=== PATIENT | female | born 1995 | race Caucasian/White ===

== ENCOUNTER 2017-07-22 02:18 | Emergency (ER) | payer OTHER, SELFPAY ==
[2017-07-22 02:19] VITALS: BP 120/70; PULSE 90; RESP 18; TEMP 36.8; O2SAT 100; BMI 23.3
[2017-07-22 02:51] LABS: Absolute Lymphocyte Count 1.32 X10^3/ul (0.83-4.51); Basophil# 0.02 X10^3/uL; Basophil% 0.1 % (0-1); Eosinophil# 0.05 X10^3/uL; Eosinophils% 0.4 % (0-5); Hematocrit 40.8 % (37-47); Hemoglobin 13.8 g/dl (12.0-15.0); Lymphocyte # 1.32 X10^3/ul (4.0); Lymphocyte % 9.4 % (19-41); Mean Corp Hgb Conc 33.8 g/gl (32-36); Mean Corpuscular Hgb 28.8 pg (27.0-32.0); Mean Platelet Vol. 9.2 fl (6.2-12.0); Monocyte# 0.61 X10^3/uL; Monocyte% 4.4 % (0-10); Neutrophil # 11.97 X10^3/uL (2.7-7.7); Neutrophil % 85.4 % (47-70); POSITIVE COUNT NO; POSITIVE DIFFERENTIAL NO; POSITIVE MORPHOLOGY NO; Platelet Count 377 K/mm3 (150-450); RBC Distribution Width CV 13.6 % (11.6-14.6); RBC Distribution Width SD 41.2 fl (35.1-43.9)
[2017-07-22] MEDS: Lactated Ringers 1,000 ML 1000 ML IV (02:58)
[2017-07-22] MEDS: Metoclopramide 10 MG/2 ML Vial IV (02:58)
[2017-07-22 03:01] LABS: BUN 15 mg/dL (7-18); Creatinine, Serum 0.64 mg/dL (0.55-1.02); Estimated Creatinine Clearance 127.22 ml/min; Glucose 106 mg/dL (74-106)
[2017-07-22 03:02] LABS: ALB/GLOB Ratio 0.9 RATIO (0.9-2.4); AST(SGOT) 15 U/L (15-37); Alanine Aminotransfer ALT/SGPT 27 U/L (13-56); Albumin, Serum 4.1 g/dL (3.2-5.0); Alkaline Phosphatase 116 U/L (45-117); Anion Gap 8 (5-15); BUN/Creat Ratio 23.5 RATIO (10-20); Calcium,Total 8.6 mg/dL (8.5-10.1); Chloride 104 mmol/L (98-107); EST Glomerular Filtration Rate 127 mL/min (>60); Est Glom Filt Rate - Afr Amer 153 mL/min (>60); Globulin 4.6 g/dL (2.2-4.2); Lipase 82 U/L (73-393); Potassium 3.7 mmol/L (3.5-5.1); Protein, Total 8.7 g/dL (6.4-8.2); Sodium Level 138 mmol/L (136-145)
--- NOTE | 2017-07-22 03:35 | ED.VISSUMM ---
- ER Visit Summary Date of Service: 07/22/17 Chief Complaint: Abdominal pain nausea and vomiting History of Present Illness: The patient is a 21 F presenting for evaluation secondary to abdominal pain nausea vomiting. Patient states that today she had a relatively sudden onset of profuse nausea vomiting. She states that this is nonbloody nonbilious. Patient states that after up to 9 episodes of vomiting she started to gradually get some diffuse crampy abdominal pain. Pain is worse with palpation. Patient denies any diarrhea, she denies any presence of fevers. Patient states that she was unable to keep down fluids. Patient is approximately 5 weeks , is a . She denies any vaginal bleeding or discharge. She has had some mild morning sickness with this , but denies that she is actually had any sort of vomiting. She denies any sick contacts. Physical Examination: Vital signs are within normal limits, patient is afebrile. General: Patient is well-nourished well-developed and in no acute distress. Head: Normocephalic, atraumatic Eyes: Pupils equal round and reactive bilaterally, extra occular motion intact bialterally ENT: Mildly dry mucous membranes Neck: Supple, no lymphadenopathy, no JVD, no meningismus CVS: Heart regular rate and rhythm, no murmurs, rubs or gallops, radial pulses 2+ bilaterally Resp: Respirations nondistressed, lung sounds clear bilaterally Abdomen: Soft, minimal epigastric ttp, nondistended, no palpable masses, normal bowel sounds Back: Nontender Extremities: Nontender, atraumatic, active full range of motion, no peripheral edema Skin: warm, no rashes, no petechia Neuro: Alert and oriented x 4, CN 2-12 intact, no lateralizing neurological defecits Psyc: Normal affect Test Results: CBC shows leukocytosis of 14. CMP unremarkable, lipase negative, ketones negative Emergency Department Course and Treatment: Patient presented secondary to nausea and vomiting in the setting of first trimester . She is not ketotic, I do not believe that this is a presentation of hyperemesis. She was given a liter of lactated Ringer's and Reglan. Repeat evaluation showed significant symptomatic improvement. At this point she likely has an element of gastritis she will be discharged with Reglan instructions on hydration and follow-up with primary care. Disposition: Discharge Impression: 1. Gastritis 2. First trimester This note was generated with Dragon dictation software. It may contain incorrect words, spelling, and punctuation that were not noted in review of the chart prior to signing ED Disposition - Plan for ED Patient: Disposition: Home or Assisted Living Chief Complaint: Nausea/Vomiting Diagnosis: Gastritis Instructions: ED Nausea Vomiting Prescriptions: Metoclopramide [Reglan] 10 mg PO 4X/DAY PRN PRN #20 tab PRN Reason: Headache Referrals: Latricia Sullivan COUNTERINTELLIGENCE ANALYST-C [Primary Care Provider] - 3-5 Days if not improving
[2017-07-22 04:30] VITALS: BP 100/57; PULSE 84; RESP 14; O2SAT 98
== END 2017-07-22 04:30 | disposition home or self-care (01) ==
PROVIDERS: Emergency Provider Emergency Medicine; Family Provider Nurse Practitioner Family; PCP Nurse Practitioner Family
DX: O99.89 Other specified diseases and conditions complicating pregnancy, childbirth and the puerperium (principal); K29.70 Gastritis, unspecified, without bleeding; Z3A.01 Less than 8 weeks gestation of pregnancy
CPT/HCPCS: 80053; 82009; 83690; 85025; 96361; 96374; 99283; J7120; A4216

== ENCOUNTER → 2017-11-20 16:51 | Outpatient (CLI) | payer SELFPAY ==
[2017-11-20 17:40] LABS: Absolute Lymphocyte Count 2.42 X10^3/ul (0.83-4.51); Absolute Neutrophil Count 7.2 X10^3/uL (2.0-7.7); Basophil# 0.02 X10^3/uL; Basophil% 0.2 % (0-1); Eosinophil# 0.05 X10^3/uL; Eosinophils% 0.5 % (0-5); Hematocrit 34.5 % (37-47); Hemoglobin 11.2 g/dl (12.0-15.0); Lymphocyte # 2.42 X10^3/ul (4.0); Lymphocyte % 23.4 % (19-41); Mean Corp Hgb Conc 32.5 g/gl (32-36); Mean Corpuscular Hgb 29.6 pg (27.0-32.0); Mean Corpuscular Volume 91.3 fL (81-99); Mean Platelet Vol. 9.1 fl (6.2-12.0); Monocyte# 0.68 X10^3/uL; Monocyte% 6.6 % (0-10); Neutrophil # 7.16 X10^3/uL (2.7-7.7); Platelet Count 296 K/mm3 (150-450); RBC Distribution Width CV 13.8 % (11.6-14.6); RBC Distribution Width SD 45.2 fl (35.1-43.9); Red Blood Count 3.78 M/mm3 (4.2-5.4); White Blood Count 10.4 K/mm3 (4.4-11.0)
[2017-11-20 17:41] LABS: POSITIVE COUNT NO; POSITIVE DIFFERENTIAL NO; POSITIVE MORPHOLOGY NO
[2017-11-20 17:45] LABS: Color, Urine Yellow (Yellow); Glucose, Dipstick Normal (Normal); Ketone-Dipstick 5 mg/dl (Negative); Leukocyte Esterase-Dipstick 25 /ul (Negative); Nitrite-Dipstick Negative (Negative); Occult Blood-Urine Negative /ul (Negative); Protein-Dipstick 15 mg/dl (Negative); Specific Gravity, Urine 1.015 (1.002-1.030); Urine Bilirubin Dipstick Negative (Negative); Urine Clarity Sl. Cloudy (Clear); Urine Urobilinogen Normal (Normal)
[2017-11-20 18:17] LABS: Thyroid Stim Hormone (TSH) 1.32 uIU/mL (0.358-3.74)
[2017-11-20 19:24] LABS: Chlamydia Trachomatis by PCR Negative (Negative); Neisserai gonorrhoeae by PCR Negative (Negative); Probe Check PASS; Sample Adequacy Control PASS; Specimen Processing Control PASS
[2017-11-21 10:31] LABS: HIV - WCH Non-Reactive (Nonreactive)
[2017-11-23 03:49] LABS: Prenatal RPR NONREACTIVE (NONREACTIVE)
[2017-11-23 11:51] LABS: HEPATITIS B SURFACE AG Negative (Negative); Hep C Antibodies <0.1 s/co ratio (0.0-0.9)
== END ==
PROVIDERS: Visit Provider Obstetrics & Gynecology
DX: Z34.82 Encounter for supervision of other normal pregnancy, second trimester (principal)
CPT/HCPCS: 36415; 81002; 84443; 85025; 86703; 86762; 86803; 87340; 87491; 87591

== ENCOUNTER → 2017-12-18 09:48 | Outpatient (CLI) | payer OTHER, SELFPAY ==
[2017-12-18 10:44] LABS: Hematocrit 32.9 % (37-47); Hemoglobin 10.7 g/dl (12.0-15.0); Mean Corp Hgb Conc 32.5 g/gl (32-36); Mean Corpuscular Hgb 29.6 pg (27.0-32.0); Mean Corpuscular Volume 90.9 fL (81-99); Mean Platelet Vol. 9.1 fl (6.2-12.0); Platelet Count 260 K/mm3 (150-450); RBC Distribution Width CV 13.6 % (11.6-14.6); Red Blood Count 3.62 M/mm3 (4.2-5.4); Scan Indicated on CBC? Y/N NO; White Blood Count 8.5 K/mm3 (4.4-11.0)
[2017-12-18 11:21] LABS: Glucose Challenge Gest 1H 50g 89 mg/dL (70-140)
== END ==
PROVIDERS: Visit Provider Obstetrics & Gynecology
DX: Z34.83 Encounter for supervision of other normal pregnancy, third trimester (principal)
CPT/HCPCS: 36415; 82950; 85027

== ENCOUNTER → 2018-02-04 10:33 | Outpatient (CLI) | payer OTHER, SELFPAY | PROVIDERS: Visit Provider Obstetrics & Gynecology | DX: Z36.85 Encounter for antenatal screening for Streptococcus B (principal) | CPT/HCPCS: 87081 ==

== ENCOUNTER 2018-03-09 13:44 | Inpatient (IN) | payer SELFPAY ==
[2018-03-09 12:52] VITALS: BMI 25.7
[2018-03-09] MEDS: Lactated Ringers 1,000 ML 50 ML IV ×3 (14:15→20:04)
[2018-03-09 14:40] LABS: Hematocrit 35.1 % (37-47); Hemoglobin 11.2 g/dl (12.0-15.0); Mean Corp Hgb Conc 31.9 g/gl (32-36); Mean Corpuscular Hgb 27.3 pg (27.0-32.0); Mean Corpuscular Volume 85.4 fL (81-99); Mean Platelet Vol. 8.9 fl (6.2-12.0); Platelet Count 266 K/mm3 (150-450); RBC Distribution Width CV 14.1 % (11.6-14.6); RBC Distribution Width SD 43.5 fl (35.1-43.9); Red Blood Count 4.11 M/mm3 (4.2-5.4); Scan Indicated on CBC? Y/N NO; White Blood Count 13.8 K/mm3 (4.4-11.0)
--- NOTE | 2018-03-09 17:00 | PN.OBGYN_ITS ---
Subjective: Afeb VSS FHR tracing Cat 1 CTXs q 2-3 minutes - Physical Exam General: Alert, Oriented x3, Cooperative, No apparent distress Lungs: Clear to auscultation, Normal air movement Cardiovascular: Regular rate, Regular Rhythm Abdomen: Soft, Non Tender, Non-Distended, Gravid, Appropriate for Gestational Age Extremities: No edema Skin: No rashes Neurological: Neuro grossly intact Psych/Mental Status: Normal Affect Comment: CE /-3 Weight: 155 lb Body Mass Index (BMI) 25.7 Laboratory Tests Past 24 Hrs 03/09/18 03/09/18 14:15 14:15 WBC 13.8 H RBC 4.11 L Hgb 11.2 L Hct 35.1 L MCV 85.4 MCH 27.3 MCHC 31.9 L RDW 14.1 RDW Differential 43.5 Plt Count 266 MPV 8.9 Blood Type A POSITIVE Antibody Screen NEGATIVE Medical Necessity - Tobacco Use Smoking Status: Former smoker Assessment/Plan Admitted in active labor this afternoon. AROM performed with clear fluid noted. GBS negative. Epidural if desired. Will start pitocin if no cervical foreign exchange student coordinator the next two hours.
[2018-03-09] MEDS: fentaNYL-bupivacaine (epidural) 100 ML BAG EPIDURAL (17:39)
[2018-03-09] MEDS: Oxytocin 30 units/NS 500 ml 30 UNITS/500 ML IV.SOLN IV (19:00)
[2018-03-09] MEDS: Acetaminophen 325 MG Tablet PO (19:17)
[2018-03-09] MEDS: Oxytocin 30 units/NS 500 ml 30 UNITS/500 ML IV.SOLN 334 UNITS IV (22:28)
--- NOTE | 2018-03-09 22:41 | PCM.OB.VAG ---
Vaginal Delivery Maternal Presentation: Active Labor Presents at 40 weeks ega in active labor Amniotic Membrane Rupture Type: Artificial Rupture of Membrane time: 1630 Amniotic Fluid Description: Clear Final KELLIE: 03/09/18 Final KELLIE Source: US <20 weeks Gestational age: 40 Weeks and 0 Days Date of Procedure: 03/09/18 Pre-Operative Diagnosis: Labor Post-Operative Diagnosis: same Surgery/ Procedure Performed: Spontaneous Vaginal Delivery Anesthesiologist: Marino Vidal Type of Anesthesia: Epidural Description of Procedure: Progressed with pitocin augmentation to FD then pushed for about 15 minutes to deliver a live female without complication. Delayed cord clamping was employed. The placenta delivered spontaneously intact with a centrally located 3VC. The uterus contracted well after delivery. Inspection revealed an intact cervix, upper and lower vagina. A small left periurethral tear was repaired with 3-0 vicryl suture. Presentation: Vertex Placental Delivery Description: Spontaneous Placenta Disposition: [facility] Percentage of Placenta Abruption: 0 Cord Vessel Description: 3 Vessels Nuchal Cord Compression: Without compression Cord Entanglement: None Drain: Woods to straight drain Estimated Blood Loss: 200cc A gender: Female (1 minute): 8 (5 minute): 9 Episiotomy Description: None Laceration: Periurethral Extnsion/lac, 1st degree Medications given after delivery: IV Pitocin Complications: None
--- NOTE | 2018-03-09 22:48 | DCINST_ITS ---
Discharge Diet: No Restrictions Discharge Activity: Return to Normal Activity, May Drive, May Shower Return to work on:: 05/10/18 May resume sexual activity in: 6 weeks Call your doctor if your incision/area has: Sudden Increased Bleeding, Increased Pain/ Swelling, Foul Smelling Discharge Call your doctor if you observe: Fever of 101 or Higher, Inability to urinate, Inability to have a bowel movement, Using more than one pad per hour, Shortness of breath, Chest pain, Calf discomfort, Uncontrolled pain Cleanse incision/area with: Soap & Water Additional Instructions: If you experience any of the following, contact your healthcare provider. * Bleeding that soaks a pad every hour for 2 hours * Fever 100.4 or higher * Unrelieved incision or abdominal pain * Swelling, redness, discharge or bleeding from your incision or episiotomy site * Your incision begins to separate * Problems urinating (including inability to urinate or burning while urinating). * Visual changes * Severe headache * Flu-like symptoms * Pain or redness in one of both of your breasts * Pain, warmth, tenderness or swelling in your legs, especially the calf area * Frequent nausea and vomiting * Symptoms of depression or anxiety If you experience any of the following, call 911 or go to the nearest Emergency Room. * Chest pain * Problems breathing * Seizure activity * Partial or complete paralysis of a body part, slurred speech, weakness or drooping of the face, or a sudden inability to walk or hold your balance Allergies/Adverse Reactions: Allergies No Known Allergies Allergy (Verified 03/09/18 13:02) Medications to take at Discharge Formula Tablet 1 tablet PO DAILY 09/10/16 Ibuprofen [Motrin] 600 mg PO Q6H PRN PRN #30 tab 03/09/18 The following prescriptions were given: Ibuprofen [Motrin] 600 mg PO Q6H PRN PRN #30 tab PRN Reason: pain or cramping Please Follow Up With: Sonja Sapp MD When: 6 weeks Test Results: Test results from this visit will be discussed in further detail at your follow- up appointment, if applicable. Proposed Discharge Date: 03/11/18
[2018-03-09] MEDS: Oxytocin 30 units/NS 500 ml 30 UNITS/500 ML IV.SOLN 167 UNITS IV (22:58)
[2018-03-10 00:40] VITALS: BP 104/59; PULSE 96; RESP 16; TEMP 36.7; O2SAT 98
--- NOTE | 2018-03-10 01:28 | NURSING ---
This RN and Trevor York RN tried to get pt. up out of bed to use restroom. Pt's legs still too numb to walk. RNs assisted pt. back in bed and positioned comfortably. Will try again in 30-60 minutes. Pt. given call light and told to use call light if she needs anything. No needs stated at this time.
[2018-03-10 03:23] VITALS: BP 111/63; PULSE 98; RESP 16; TEMP 36.9; O2SAT 95
[2018-03-10] MEDS: Ibuprofen 600 MG Tablet PO ×3 (05:37→20:14)
[2018-03-10 05:47] LABS: Hematocrit 32.6 % (37-47); Hemoglobin 10.6 g/dl (12.0-15.0); Mean Corp Hgb Conc 32.5 g/gl (32-36); Mean Corpuscular Hgb 28.2 pg (27.0-32.0); Mean Corpuscular Volume 86.7 fL (81-99); Mean Platelet Vol. 9.2 fl (6.2-12.0); Platelet Count 240 K/mm3 (150-450); RBC Distribution Width SD 42.6 fl (35.1-43.9); Red Blood Count 3.76 M/mm3 (4.2-5.4)
[2018-03-10 05:48] LABS: Scan Indicated on CBC? Y/N NO
[2018-03-10] MEDS: Acetaminophen 500 MG Tablet 1000 MG PO ×2 (08:35→17:23)
[2018-03-10] MEDS: Dibucaine 30 GM Tube 1 APPLIC TOPICAL (08:44)
[2018-03-10] MEDS: Senna/Docusate Sodium 1 Tablet PO (08:44)
[2018-03-10] MEDS: Prenatal Vits Tablet 1 TABLET PO (08:44)
[2018-03-10 09:00] VITALS: BP 113/73; PULSE 85; RESP 16; TEMP 36.4; O2SAT 98
--- NOTE | 2018-03-10 09:01 | PCM.PN.OB ---
Subjective: No specific complaints. Some cramping with breast feeding. Lochia light. Objective: Afeb VSS - Physical Exam General: Alert, Oriented x3, Cooperative, No apparent distress Lungs: Clear to auscultation, Normal air movement Cardiovascular: Regular rate, Regular Rhythm Abdomen: Soft, Non Tender, Non-Distended, - - Fundus firm nontender Extremities: No edema, No Calf Tenderness Skin: No rashes Neurological: Neuro grossly intact Psych/Mental Status: Normal Affect Comment: Lochia light Vital Signs Temp Pulse Resp BP Pulse Ox 98.4 F 98 16 111/63 95 03/10/18 03:23 03/10/18 03:23 03/10/18 03:23 03/10/18 03:23 03/10/18 03:23 Oxygen Delivery Method Room Air Weight: 155 lb Body Mass Index (BMI) 25.7 Intake and Output for Last 24 Hours 03/08/18 03/09/18 03/10/18 23:59 23:59 23:59 Intake Total 2380 / 2380 1309 / 1309 Output Total 1050 / 1050 1300 / 1300 Balance 1330 / 1330 9 / 9 Laboratory Tests Past 24 Hrs 03/09/18 03/09/18 03/10/18 14:15 14:15 05:25 WBC 13.8 H 15.0 H RBC 4.11 L 3.76 L Hgb 11.2 L 10.6 L Hct 35.1 L 32.6 L MCV 85.4 86.7 MCH 27.3 28.2 MCHC 31.9 L 32.5 RDW 14.1 14.0 RDW Differential 43.5 42.6 Plt Count 266 240 MPV 8.9 9.2 Blood Type A POSITIVE Antibody Screen NEGATIVE Medical Necessity - Tobacco Use Smoking Status: Former smoker Assessment/Plan Doing well on PP day#1 s/p . Continue routine PP care.
[2018-03-10 13:06] VITALS: BP 111/74; PULSE 74; RESP 18; TEMP 36.2; O2SAT 98
[2018-03-10 16:00] VITALS: BP 107/72; PULSE 86; RESP 18; TEMP 36.2; O2SAT 100
[2018-03-10 20:15] VITALS: BP 106/68; PULSE 84; RESP 18; TEMP 36.2; O2SAT 97
[2018-03-11 02:00] VITALS: BP 93/52; PULSE 71; RESP 16; TEMP 36.4; O2SAT 98
--- NOTE | 2018-03-11 02:12 | NURSING ---
Woods catheter removed prior to this RNs care for this pt.
[2018-03-11] MEDS: Acetaminophen 500 MG Tablet 1000 MG PO (02:38)
[2018-03-11] MEDS: Ibuprofen 600 MG Tablet PO (07:44)
[2018-03-11 07:53] VITALS: BP 110/69; PULSE 74; RESP 18; TEMP 36.4
--- NOTE | 2018-03-11 08:01 | PCM.PN.OB ---
Subjective: Some cramping with breast feeding. Bleeding light. Objective: Afeb VSS - Physical Exam General: Alert, Oriented x3, Cooperative, No apparent distress Lungs: Clear to auscultation, Normal air movement Cardiovascular: Regular rate, Regular Rhythm Abdomen: Soft, Non Tender, Non-Distended, - - Fundus firm nontender Extremities: No edema Skin: No rashes Neurological: Neuro grossly intact Psych/Mental Status: Normal Affect Comment: Lochia light Vital Signs Temp Pulse Resp BP Pulse Ox 97.5 F L 74 18 110/69 98 03/11/18 07:53 03/11/18 07:53 03/11/18 07:53 03/11/18 07:53 03/11/18 02:00 Oxygen Delivery Method Room Air Weight: 155 lb Body Mass Index (BMI) 25.7 Intake and Output for Last 24 Hours 03/09/18 03/10/18 03/11/18 23:59 23:59 23:59 Intake Total 2380 / 2380 1309 / 1309 Output Total 1050 / 1050 1700 / 1700 Balance 1330 / 1330 -391 / -391 Medical Necessity - Tobacco Use Smoking Status: Former smoker Assessment/Plan Doing well on PP day#2. Cleared for discharge home today. Home going instructions and warnings given today.
--- NOTE | 2018-03-11 08:03 | PCM.DC.SUM ---
Discharge Date and Diagnosis Date of Admission: 03/09/18 Date of Discharge: 03/11/18 - Primary Discharge Diagnosis S/P Hospital Course and Treatment Operations: None Procedures: - - Epidural anesthesia, pitocin augmentation of labor, Summary of Care Provided: The patient is a 22 year old F [admitted in active labor. Labor progressed with augmentation to FD. She pushed for a short time to deliver a live female . Post course was unremarkable. Discharged home on PP day#2.] - Physical Exam Vital Signs Temp Pulse Resp BP Pulse Ox 97.5 F L 74 18 110/69 98 03/11/18 07:53 03/11/18 07:53 03/11/18 07:53 03/11/18 07:53 03/11/18 02:00 Oxygen Delivery Method Room Air Weight: 155 lb Body Mass Index (BMI) 25.7 Intake and Output for Last 24 Hours 03/09/18 03/10/18 03/11/18 23:59 23:59 23:59 Intake Total 2380 / 2380 1309 / 1309 Output Total 1050 / 1050 1700 / 1700 Balance 1330 / 1330 -391 / -391 Discharge Diet: No Restrictions Discharge Activity: Return to Normal Activity, May Drive, May Shower Return to work on:: 05/10/18 May resume sexual activity in: 6 weeks Call your doctor if your incision/area has: Sudden Increased Bleeding, Increased Pain/ Swelling, Foul Smelling Discharge Call your doctor if you observe: Fever of 101 or Higher, Inability to urinate, Inability to have a bowel movement, Using more than one pad per hour, Shortness of breath, Chest pain, Calf discomfort, Uncontrolled pain Cleanse incision/area with: Soap & Water Home Medications: Medications to take at Discharge Formula Tablet 1 tablet PO DAILY 09/10/16 Ibuprofen [Motrin] 600 mg PO Q6H PRN PRN #30 tab 03/09/18 Following Prescrptions Were Given to Patient: Ibuprofen [Motrin] 600 mg PO Q6H PRN PRN #30 tab PRN Reason: pain or cramping Please Follow Up With: Sonja Sapp MD When: 6 weeks Disposition: Home Minutes spent on discharge:: 15 Patient Condition:: Good Medical Necessity - Tobacco Use Smoking Status: Former smoker Meaningful Use Info Meaningful Use Diagnoses (Choose all that apply): None applicable
[2018-03-11 11:25] VITALS: BP 110/69; PULSE 74; RESP 18; TEMP 36.4
--- OUTSIDE RECORDS SUMMARY | 2018-06-12 10:54 | XMS RPT_ITS ---
:1995 Author Organization OHIP Support Name Relationship Address Phone KASSIDY RODRIGUEZ Unavailable [address] + [place] [address] JENNIFER, ALEXA Unavailable [address] + [place] [address] UE Unavailable Unavailable Unavailable JENNIFERKASSIDY DEL TORO Unavailable [address] + [place] [address] JENNIFER, ALEXA Unavailable [address] + [place] [address] UE Unavailable Unavailable Unavailable KASSIDY RODRIGUEZ Unavailable [address] + [place] [address] JENNIFER, ALEXA Unavailable [address] + [place] [address] UE Unavailable Unavailable Unavailable JENNIFER, KASSIDY Unavailable [address] + [place] [address] JENNIFER, ALEXA Unavailable [address] + [place] [address] UE Unavailable Unavailable Unavailable KASSIDY RODRIGUEZ Unavailable [address] + [place] [address] JENNIFER, ALEXA Unavailable [address] + [place] [address] UE Unavailable Unavailable Unavailable Care Team Providers Name Role Phone Bucky Ibanez Attending Unavailable Bucky Ibanez Admitting Unavailable Sonja Sapp Attending Unavailable Sonja Sapp Attending Unavailable Sonja Sapp Attending Unavailable Dinesh Connolly Attending Unavailable Latricia Sullivan Primary Care Unavailable PROBLEMS PROBLEMS DATE TYPE CONDITION / CODE ATTENDING STATUS SOURCE 02/04/2018 Unknown Z36.85 - Encounter Senait Active Angelique for [facility] screening for Hospital Streptococcus B / Repository Z36.85(ICD-10) 12/20/2017 Unknown Z34.83 - Encounter Senait Active Angelique for supervision of [facility] other normal Hospital , third Repository trimester / Z34.83(ICD-10) 11/23/2017 Unknown Z34.82 - Encounter Senait Active Angelique for supervision of [facility] normal Hospital , second Repository trimester / Z34.82(ICD-10) PROCEDURES PROCEDURES No Procedure Records FoundRESULTS RESULTS DISCHARGE SUMMARY Observed: 03/11/2018 Status: F Source: [place] 8:09 AM [facility] REPOSITORY [facility] Medical Records Department [address] [place] [address] Discharge Summary 03/11/18 0803 MR#: [id number] Acct: [id number] Name: GREGORY RODRIGUEZ I Rep #: [id number] : 1995 22 From: Bucky Ibanez MD PCP: Status: ADM IN Location: [place] [address]-1 Discharge Date and Diagnosis Date of Admission: 03/09/18 Date of Discharge: 03/11/18 - Primary Discharge Diagnosis S/P Hospital Course and Treatment Operations: None Procedures: - - Epidural anesthesia, pitocin augmentation of labor, Summary of Care Provided: The patient is a 22 year old F [admitted in active labor. Labor progressed with augmentation to FD. She pushed for a short time to deliver a live female . Post course was unremarkable. Discharged home on day#2.] - Physical Exam Vital Signs Temp Pulse Resp BP Pulse Ox 97.5 F L 74 18 110/69 98 03/11/18 07:53 03/11/18 07:53 03/11/18 07:53 03/11/18 07:53 03/11/18 02:00 Oxygen Delivery Method Room Air Weight: 155 lb Body Mass Index (BMI) 25.7 Intake and Output for Last 24 Hours Intake Total 2380 / 2380 1309 / 1309 Output Total 1050 / 1050 1700 / 1700 Balance 1330 / 1330 -391 / -391 Discharge Diet: No Restrictions Discharge Activity: Return to Normal Activity, May Drive, May Shower Return to work on:: 05/10/18 May resume sexual activity in: 6 weeks Call your doctor if your incision/area has: Sudden Increased Bleeding, Increased Pain/ Swelling, Foul Smelling Discharge Call your doctor if you observe: Fever of 101 or Higher, Inability to urinate, Inability to have a bowel movement, Using more than one pad per hour, Shortness of breath, Chest pain, Calf discomfort, Uncontrolled pain Cleanse incision/area with: Soap AND Water Home Medications: Medications to take at Discharge Formula Tablet 1 tablet PO DAILY 09/10/16 Ibuprofen [Motrin] 600 mg PO Q6H PRN PRN #30 tab 03/09/18 Following Prescrptions Were Given to Patient: Ibuprofen [Motrin] 600 mg PO Q6H PRN PRN #30 tab PRN Reason: pain or cramping Please Follow Up With: Sonja Sapp MD When: 6 weeks Disposition: Home Minutes spent on discharge:: 15 Patient Condition:: Good Medical Necessity - Tobacco Use Smoking Status: Former smoker Meaningful Use Info Meaningful Use Diagnoses (Choose all that apply): None applicable 03/11/18 0809 <Electronically signed by Bucky Ibanez MD> Date Bucky Ibanez MD Cosigner Signature (if applicable): Date CC: Bucky Ibanez MD Signed CBC-COMPLETE BLOOD CNT Collected: 03/10/2018 Status: F Source: [place] NO DIFF 5:25 AM [facility] REPOSITORY Order Comment: Reason for Laboratory Test Day #1 TYPE CODE TESTS RESULT OUT OF RANGE REFERENCE UNITS LAB L100.1000 4.4-11.0 K/mm3 High WBC 15.0 LAB L100.1200 4.2-5.4 M/mm3 Low RBC 3.76 LAB L100.1300 12.0-15.0 g/dl Low HGB 10.6 LAB L100.1400 37-47 % Low HCT 32.6 LAB L100.1500 81-99 fL Normal MCV 86.7 LAB L100.1600 27.0-32.0 pg Normal MCH 28.2 LAB L100.1700 32-36 g/gl Normal MCHC 32.5 LAB L100.1810 11.6-14.6 % Normal RDW CV 14.0 LAB L100.1820 35.1-43.9 fl Normal RDW SD 42.6 LAB L100.1900 150-450 K/mm3 Normal PLT 240 LAB L100.2000 6.2-12.0 fl Normal MPV 9.2 Performed By: #### L100.0500 #### [facility] [address] [place], [address] DISCHARGE INSTRUCTION Observed: 03/09/2018 Status: F Source: [place] 10:48 PM [facility] REPOSITORY [facility] Medical Records Department [address] [facility] [place] [address] Instructions for Home/Discharge Instructions 03/09/18 2247 MR#: [id number] Acct: [id number] Name: GREGORY RODRIGUEZ Devaughn Rep #: [id number] : 1995 22 From: Bucky Ibanez MD PCP: Status: ADM IN Discharge Diet: No Restrictions Discharge Activity: Return to Normal Activity, May Drive, May Shower Return to work on:: 05/10/18 May resume sexual activity in: 6 weeks Call your doctor if your incision/area has: Sudden Increased Bleeding, Increased Pain/ Swelling, Foul Smelling Discharge Call your doctor if you observe: Fever of 101 or Higher, Inability to urinate, Inability to have a bowel movement, Using more than one pad per hour, Shortness of breath, Chest pain, Calf discomfort, Uncontrolled pain Cleanse incision/area with: Soap AND Water Additional Instructions: If you experience any of the following, contact your healthcare provider. * Bleeding that soaks a pad every hour for 2 hours * Fever 100.4 or higher * Unrelieved incision or abdominal pain * Swelling, redness, discharge or bleeding from your incision or episiotomy site * Your incision begins to separate * Problems urinating (including inability to urinate or burning while urinating). * Visual changes * Severe headache * Flu-like symptoms * Pain or redness in one of both of your breasts * Pain, warmth, tenderness or swelling in your legs, especially the calf area * Frequent nausea and vomiting * Symptoms of depression or anxiety If you experience any of the following, call 911 or go to the nearest Emergency Room. * Chest pain * Problems breathing * Seizure activity * Partial or complete paralysis of a body part, slurred speech, weakness or drooping of the face, or a sudden inability to walk or hold your balance Allergies/Adverse Reactions: Allergies No Known Allergies Allergy (Verified 03/09/18 13:02) Medications to take at Discharge Formula Tablet 1 tablet PO DAILY 09/10/16 Ibuprofen [Motrin] 600 mg PO Q6H PRN PRN #30 tab 03/09/18 The following prescriptions were given: Ibuprofen [Motrin] 600 mg PO Q6H PRN PRN #30 tab PRN Reason: pain or cramping Please Follow Up With: Sonja Sapp MD When: 6 weeks Test Results: Test results from this visit will be discussed in further detail at your follow-up appointment, if applicable. Proposed Discharge Date: 03/11/18 03/09/182247 <Electronically signed by Bucky Ibanez MD> Date Bucky Ibanez MD CC: OPERATIVE REPORT Observed: 03/09/2018 Status: F Source: [place] 10:45 PM [facility] REPOSITORY [facility] Medical Records Department [address] [place] [address] Operative Report 03/09/182240 MR#: [id number] Acct: [id number] Name: GREGORY RODRIGUEZ I Rep #: [id number] : 1995 22 From: Bucky Ibanez MD PCP: Status: ADM IN Location: [facility]-2 Vaginal Delivery Maternal Presentation: Active Labor Presents at 40 weeks ega in active labor Amniotic Membrane Rupture Type: Artificial Rupture of Membrane time: 1630 Amniotic Fluid Description: Clear Final KELLIE: 03/09/18 Final KELLIE Source: US <20 weeks Gestational age: 40 Weeks and 0 Days Date of Procedure: 03/09/18 Pre-Operative Diagnosis: Labor Post-Operative Diagnosis: same Surgery/ Procedure Performed: Spontaneous Vaginal Delivery Anesthesiologist: Marino Vidal Type of Anesthesia: Epidural Description of Procedure: Progressed with pitocin augmentation to FD then pushed for about 15 minutes to deliver a live female without complication. Delayed cord clamping was employed. The placenta delivered spontaneously intact with a centrally located 3VC. The uterus contracted well after delivery. Inspection revealed an intact cervix, upper and lower vagina. A small left periurethral tear was repaired with 3-0 vicryl suture. Presentation: Vertex Placental Delivery Description: Spontaneous Placenta Disposition: [facility] Percentage of Placenta Abruption: 0 Cord Vessel Description: 3 Vessels Nuchal Cord Compression: Without compression Cord Entanglement: None Drain: Woods to straight drain Estimated Blood Loss: 200cc A gender: Female (1 minute): 8 (5 minute): 9 Episiotomy Description: None Laceration: Periurethral Extnsion/lac, 1st degree Medications given after delivery: IV Pitocin Complications: None 03/09/18 2245 <Electronically signed by Bucky Ibanez MD> Date Bucky Ibanez MD CC: Bucky Ibanez MD Signed CBC-COMPLETE BLOOD CNT Collected: 03/09/2018 Status: F Source: [place] NO DIFF 2:15 PM [facility] REPOSITORY TYPE CODE TESTS RESULT OUT OF RANGE REFERENCE UNITS LAB L100.1000 4.4-11.0 K/mm3 High WBC 13.8 LAB L100.1200 4.2-5.4 M/mm3 Low RBC 4.11 LAB L100.1300 12.0-15.0 g/dl Low HGB 11.2 LAB L100.1400 37-47 % Low HCT 35.1 LAB L100.1500 81-99 fL Normal MCV 85.4 LAB L100.1600 27.0-32.0 pg Normal MCH 27.3 LAB L100.1700 32-36 g/gl Low MCHC 31.9 LAB L100.1810 11.6-14.6 % Normal RDW CV 14.1 LAB L100.1820 35.1-43.9 fl Normal RDW SD 43.5 LAB L100.1900 150-450 K/mm3 Normal PLT 266 LAB L100.2000 6.2-12.0 fl Normal MPV 8.9 Performed By: #### L100.0500 #### [facility] [address], [address] TYPE AND SCREEN Collected: 03/09/2018 Status: F Source: [place] 2:15 PM [facility] REPOSITORY Order Comment: Reason for Type AND Screen/Red Cells: ROUTINE TYPE CODE TESTS RESULT OUT OF RANGE REFERENCE UNITS LAB B10.0800 A Normal BLOOD TYPE GEL POSITIVE LAB B100.4000 Normal Antibody NEGATIVE Screen Performed By: #### B101.7450 #### [facility] [address] [facility] [place], [address] Observed: 02/04/2018 Status: F Source: [place] CULTURE, GROUP B 9:45 AM [facility] REPOSITORY Comments: VAGINAL/RECTAL KATHRYN Culture Group B Beta Streptococcus is not isolated. Performed By: #### M100.1800 #### [facility] [address] [facility] [place], [address] CBC-COMPLETE BLOOD CNT Collected: 12/18/2017 Status: F Source: [place] NO DIFF 10:05 AM [facility] REPOSITORY TYPE CODE TESTS RESULT OUT OF RANGE REFERENCE UNITS LAB L100.1000 4.4-11.0 K/mm3 Normal WBC 8.5 LAB L100.1200 4.2-5.4 M/mm3 Low RBC 3.62 LAB L100.1300 12.0-15.0 g/dl Low HGB 10.7 LAB L100.1400 37-47 % Low HCT 32.9 LAB L100.1500 81-99 fL Normal MCV 90.9 LAB L100.1600 27.0-32.0 pg Normal MCH 29.6 LAB L100.1700 32-36 g/gl Normal MCHC 32.5 LAB L100.1810 11.6-14.6 % Normal RDW CV 13.6 LAB L100.1820 35.1-43.9 fl High RDW SD 45.0 LAB L100.1900 150-450 K/mm3 Normal PLT 260 LAB L100.2000 6.2-12.0 fl Normal MPV 9.1 Performed By: #### L100.0500 #### [facility] [address] [place], [address] GLUCOSE CHALLENGE GEST Collected: 12/18/2017 Status: F Source: [place] 1H 50G 10:05 AM [facility] REPOSITORY TYPE CODE TESTS RESULT OUT OF RANGE REFERENCE UNITS LAB L501.0250 70-140 mg/dL Normal GLU GEST 89 50g 1H Performed By: #### L501.0250 #### [facility] [address] [place], [address] CBC W/DIFF, AUTOMATED Collected: 11/20/2017 Status: F Source: [place] 5:00 PM [facility] REPOSITORY TYPE CODE TESTS RESULT OUT OF RANGE REFERENCE UNITS LAB L100.1000 4.4-11.0 K/mm3 Normal WBC 10.4 LAB L100.1200 4.2-5.4 M/mm3 Low RBC 3.78 LAB L100.1300 12.0-15.0 g/dl Low HGB 11.2 LAB L100.1400 37-47 % Low HCT 34.5 LAB L100.1500 81-99 fL Normal MCV 91.3 LAB L100.1600 27.0-32.0 pg Normal MCH 29.6 LAB L100.1700 32-36 g/gl Normal MCHC 32.5 LAB L100.1810 11.6-14.6 % Normal RDW CV 13.8 LAB L100.1820 35.1-43.9 fl High RDW SD 45.2 LAB L100.1900 150-450 K/mm3 Normal PLT 296 LAB L100.2000 6.2-12.0 fl Normal MPV 9.1 LAB L100.2100 47-70 % Normal NEUT% 69.0 LAB L100.2200 19-41 % Normal LY% 23.4 LAB L100.2300 0-10 % Normal MONO% 6.6 LAB L100.2400 0-5 % Normal EO% 0.5 LAB L100.2500 0-1 % Normal BASO% 0.2 LAB L100.2550 0.0-0.9 % Normal IM GRAN % 0.300 Result Comment: IG% - Immature Granulocytes (promyelocytes, myelocytes and metamyelocytes) > 1% indicates that a LEFT SHIFT is Present. LAB L100.2620 2.0-7.7 X10 3/uL Normal Absolute Neut 7.2 LAB L100.2720 0.83-4.51 X10 3/ul Normal Absolute Lymph 2.42 Performed By: #### L100.0100 #### [facility] [address] [place], [address] URINALYSIS, ROUTINE Collected: 11/20/2017 Status: F Source: [place] (DIPSTICK) 5:00 PM [facility] REPOSITORY Order Comment: How was Urine Obtained? Urine, Random TYPE CODE TESTS RESULT OUT OF RANGE REFERENCE UNITS LAB L400.3000 Yellow COLOR Normal Yellow LAB L400.3050 Clear Normal CLARITY Sl. Cloudy LAB L400.3200 Normal mg/dl Normal GLUCOSE, UR Normal LAB L400.3300 Negative mg/dL Normal BILIRUBIN URINE Negative LAB L400.3400 Negative mg/dl High 5 KETONE UR LAB L400.3465 1.002-1.030 Normal SP.GR. DIPSTX 1.015 LAB L400.3550 5.0 - 8.0 pH UR Normal 7.0 LAB L400.3600 Negative mg/dl High PROT 15 DIPSTX LAB L400.3700 Normal mg/dl Normal UROBILI Normal LAB L400.3750 Negative Normal NITRITE UR Negative LAB L400.3780 Negative /ul Normal OCCULT BLOOD-UR Negative LAB L400.3800 Negative /ul High LEUK 25 ESTERASE Performed By: #### L400.2010 #### [facility] [address] [facility]. [place], [place], [id number] THYROID STIM HORMONE Collected: 11/20/2017 Status: F Source: [place] (TSH) 5:00 PM [facility] REPOSITORY TYPE CODE TESTS RESULT OUT OF RANGE REFERENCE UNITS LAB L501.9520 0.358-3.74 uIU/mL Normal TSH 1.32 Performed By: #### L501.9520 #### [facility] [address] [place], [address] T AND S-NO Collected: 11/20/2017 Status: F Source: [place] CHARGE W/PNP 5:00 PM [facility] REPOSITORY Order Comment: Reason for Type AND Screen/Red Cells: Surgery? N TYPE CODE TESTS RESULT OUT OF RANGE REFERENCE UNITS LAB B10.0800 A Normal BLOOD POSITIVE TYPE GEL LAB B100.4050 Normal Ab SCREEN NEGATIVE GEL Performed By: #### B100.7550 #### [facility] [address] [facility] [place], [place], [id number] RUBELLA IGG Collected: 11/20/2017 Status: F Source: [place] 5:00 PM [facility] REPOSITORY TYPE CODE TESTS RESULT OUT OF RANGE REFERENCE UNITS LAB L509.4000 IU/mL Normal Rubella IgG 362.0 Result Comment: Antibody results Interpretation of Immune Status < 5 IU/ml Presumed Non-immune 5 - < 10 IU/ml Equivocal > or = 10 IU/ml Presumed Immune Performed By: #### L509.4000, L3890.6005 #### [facility] [address] [facility] [place], [place], [id number] HIV - [facility] Collected: 11/20/2017 Status: F Source: [place] 5:00 PM [facility] REPOSITORY TYPE CODE TESTS RESULT OUT OF RANGE REFERENCE UNITS LAB L3890.6005 Nonreactive Normal HIV - [facility] Non-Reactive Performed By: #### L509.4000, L3890.6005 #### [facility] [address] [facility] [place], [place], [id number] RPR Collected: 11/20/2017 Status: F Source: [place] 5:00 PM [facility] REPOSITORY TYPE CODE TESTS RESULT OUT OF REFERENCE UNITS RANGE LAB L700.5100 NONREACTIVE Normal RPR NONREACTIVE Performed By: #### L700.5100 #### [facility] [address] [facility] [place], [place], [id number] HEPATITIS B SURFACE Collected: 11/20/2017 Status: F Source: [place] AG 5:00 PM [facility] REPOSITORY TYPE CODE TESTS RESULT OUT OF RANGE REFERENCE UNITS LAB L3100.0400 Negative Normal HB Negative SURF AG Result Comment: Performed at: [address] [id number] Software Design Analyst: West Fischer PhD, Phone: [phone] Performed By: #### L3100.0390, L3100.0625 #### [facility] (refer to report for specific site) refer to report for address and phone number HEPATITIS C ANTIBODIES Collected: 11/20/2017 Status: F Source: [place] 5:00 PM [facility] REPOSITORY TYPE CODE TESTS RESULT OUT OF RANGE REFERENCE UNITS LAB L3100.0650 0.0-0.9 s/co ratio Normal HEP C AB <0.1 Result Comment: Negative: < 0.8 Indeterminate: 0.8 - 0.9 Positive: > 0.9 The CDC recommends that a positive HCV antibody result be followed up with a HCV Nucleic Acid Amplification test (734726). Performed By: #### L3100.0390, L3100.0625 #### [facility] (refer to report for specific site) refer to report for address and phone number CT/NG [facility] BY PCR Collected: 11/20/2017 Status: F Source: [place] 4:40 PM [facility] REPOSITORY Order Comment: PLEASE RUN ON URINE SPECIMEN PROVIDED. TYPE CODE TESTS RESULT OUT OF RANGE REFERENCE UNITS LAB L8200.2100 Negative Normal Chlam Negative Trac PCR LAB L8200.2200 Negative Normal NG by Negative PCR Performed By: #### L8200.2000 #### [facility] [address] [place] [place], [address] EMERGENCY DEPARTMENT Observed: 07/22/2017 Status: F Source: [place] SUMMARY 6:08 AM [facility] REPOSITORY [facility] Medical Records Department [address] [place] [address] Emergency Department Summary 07/22/17 0335 MR#: [id number] Acct: [id number] Name: GREGORY RODRIGUEZ Devaughn Rep #: [id number] : 1995 21 From: Dinesh Connolly MD PCP: JENN Falcon Status: DEP ER - ER Visit Summary Date of Service: 07/22/17 Chief Complaint: Abdominal pain nausea and vomiting History of Present Illness: The patient is a 21 F presenting for evaluation secondary to abdominal pain nausea vomiting. Patient states that today she had a relatively sudden onset of profuse nausea vomiting. She states that this is nonbloody nonbilious. Patient states that after up to 9 episodes of vomiting she started to gradually get some diffuse crampy abdominal pain. Pain is worse with palpation. Patient denies any diarrhea, she denies any presence of fevers. Patient states that she was unable to keep down fluids. Patient is approximately 5 weeks , is a . She denies any vaginal bleeding or discharge. She has had some mild morning sickness with this , but denies that she is actually had any sort of vomiting. She denies any sick contacts. Physical Examination: Vital signs are within normal limits, patient is afebrile. General: Patient is well-nourished well-developed and in no acute distress. Head: Normocephalic, atraumatic Eyes: Pupils equal round and reactive bilaterally, extra occular motion intact bialterally ENT: Mildly dry mucous membranes Neck: Supple, no lymphadenopathy, no JVD, no meningismus CVS: Heart regular rate and rhythm, no murmurs, rubs or gallops, radial pulses 2+ bilaterally Resp: Respirations nondistressed, lung sounds clear bilaterally Abdomen: Soft, minimal epigastric ttp, nondistended, no palpable masses, normal bowel sounds Back: Nontender Extremities: Nontender, atraumatic, active full range of motion, no peripheral edema Skin: warm, no rashes, no petechia Neuro: Alert and oriented x 4, CN 2-12 intact, no lateralizing neurological defecits Psyc: Normal affect Test Results: CBC shows leukocytosis of 14. CMP unremarkable, lipase negative, ketones negative Emergency Department Course and Treatment: Patient presented secondary to nausea and vomiting in the setting of first trimester . She is not ketotic, I do not believe that this is a presentation of hyperemesis. She was given a liter of lactated Ringer's and Reglan. Repeat evaluation showed significant symptomatic improvement. At this point she likely has an element of gastritis she will be discharged with Reglan instructions on hydration and follow-up with primary care. Disposition: Discharge Impression: 1. Gastritis 2. First trimester This note was generated with [employer]icious dictation software. It may contain incorrect words, spelling, and punctuation that were not noted in review of the chart prior to signing ED Disposition - Plan for ED Patient: Disposition: Home or Assisted Living Chief Complaint: Nausea/Vomiting Diagnosis: Gastritis Instructions: ED Nausea Vomiting Prescriptions: Metoclopramide [Reglan] 10 mg PO 4X/DAY PRN PRN #20 tab PRN Reason: Headache Referrals: Latricia Sullivan, JENN [Primary Care Provider] - 3-5 Days if not improving What to do if you have Problems For any increased pain, shortness of breath, bleeding, nausea or vomiting, chest pain, or any unexpected problems, contact your Primary Care Provider. Call [facility] ([phone]) or report to the closest Emergency Room. Call 911 if necessary. 07/22/17 0608 <Electronically signed by Dinesh Connolly MD> Date Dinesh Connolly MD Cosigner Signature (If Indicated): Date CC: JENN Sullivan ACETONE SERUM Collected: 07/22/2017 Status: F Source: [place] 2:22 AM [facility] REPOSITORY TYPE CODE TESTS RESULT OUT OF RANGE REFERENCE UNITS LAB L501.6900 NEG Normal ACETONE SERUM NEGATIVE Performed By: #### L501.6900 #### [facility] [address] [place], [address] CBC W/DIFF, AUTOMATED Collected: 07/22/2017 Status: F Source: [place] 2:22 AM [facility] REPOSITORY TYPE CODE TESTS RESULT OUT OF RANGE REFERENCE UNITS LAB L100.1000 4.4-11.0 K/mm3 High WBC 14.0 LAB L100.1200 4.2-5.4 M/mm3 Normal RBC 4.80 LAB L100.1300 12.0-15.0 g/dl Normal HGB 13.8 LAB L100.1400 37-47 % Normal HCT 40.8 LAB L100.1500 81-99 fL Normal MCV 85.0 LAB L100.1600 27.0-32.0 pg Normal MCH 28.8 LAB L100.1700 32-36 g/gl Normal MCHC 33.8 LAB L100.1810 11.6-14.6 % Normal RDW CV 13.6 LAB L100.1820 35.1-43.9 fl Normal RDW SD 41.2 LAB L100.1900 150-450 K/mm3 Normal PLT 377 LAB L100.2000 6.2-12.0 fl Normal MPV 9.2 LAB L100.2100 47-70 % High NEUT% 85.4 LAB L100.2200 19-41 % Low LY% 9.4 LAB L100.2300 0-10 % Normal MONO% 4.4 LAB L100.2400 0-5 % Normal EO% 0.4 LAB L100.2500 0-1 % Normal BASO% 0.1 LAB L100.2550 0.0-0.9 % Normal IM GRAN % 0.300 Result Comment: IG% - Immature Granulocytes (promyelocytes, myelocytes and metamyelocytes) > 1% indicates that a LEFT SHIFT is Present. LAB L100.2620 2.0-7.7 X10 3/uL High Absolute Neut 12.0 LAB L100.2720 0.83-4.51 X10 3/ul Normal Absolute Lymph 1.32 Performed By: #### L100.0100 #### [facility] [address] [place], [place], [id number] COMPREHENSIVE METABOLIC Collected: 07/22/2017 Status: F Source: [facility] 2:22 AM [facility] REPOSITORY TYPE CODE TESTS RESULT OUT OF RANGE REFERENCE UNITS LAB L501.0100 74-106 mg/dL Normal GLU 106 Result Comment: Fasting Glucose result from 100 to 125 mg/dL suggests IMPAIRED HOMEOSTASIS per A.D.A. criteria. Please note revised GLUCOSE reference range effective 2017. LAB L501.1000 7-18 mg/dL Normal BUN 15 LAB L501.1100 0.55-1.02 mg/dL Normal CREAT,SERUM 0.64 Result Comment: The validity of the calculated GFR AND GFRAA in patients over 70 years has not been determined. Clinical correlation is essential. LAB L501.1110 >60 mL/min Normal EST GFR 127 Result Comment: Non- GFR Calc LAB L501.1115 >60 mL/min Normal EST GFR - AA 153 Result Comment: GFR Calc LAB L501.1255 ml/min Normal Estimated CRCL 127.22 LAB L501.1300 10-20 RATIO High BUN/CRE 23.5 LAB L501.1500 6.4-8. g/dL High 2 T PROT 8.7 LAB L501.1800 3.2-5. g/dL 0 ALB Normal 4.1 LAB L501.1950 2.2-4. g/dL High 2 GLOB 4.6 LAB L501.2000 0.9-2. RATIO 4 A/G Normal 0.9 LAB L501.2200 8.5-10 mg/dL .1 CA Normal 8.6 LAB L501.4100 15-37 U/L AST Normal 15 LAB L501.4305 45-117 U/L ALK P Normal 116 LAB L501.4405 13-56 U/L ALT Normal 27 LAB L501.4600 0.20-1 mg/dL .00 T BILI Normal 0.40 LAB L501.5300 136-14 mmol/L 5 NA Normal 138 LAB L501.5600 3.5-5. mmol/L 1 K Normal 3.7 LAB L501.5900 98-107 mmol/L CL Normal 104 LAB L501.6100 21.0-3 mmol/L 2.0 CO2 Normal 26.0 LAB L501.6200 5-15 GAP Normal 8 Performed By: #### L500.4050, L501.2450 #### [facility] [address] [place], [address] LIPASE Collected: 07/22/2017 Status: F Source: [place] 2:22 AM [facility] REPOSITORY TYPE CODE TESTS RESULT OUT OF RANGE REFERENCE UNITS LAB L501.2450 73-393 U/L Normal LIPASE 82 Performed By: #### L500.4050, L501.2450 #### [facility] [address] [place], [address] ALLERGIES ALLERGIES DATE TYPE / CODE NAME / CODE REACTION SEVERITY SOURCE 03/09/2018 Drug No Known Unknown [facility] Allergy/4160 Allergies/F00 [facility] [address]63(SNOMED [id number](RXNOR Repository CT) M) ENCOUNTERS ENCOUNTERS ADMIT/DISCHARGE ACCOUNT ADMITTING ENCOUNTER LOCATION SOURCE NUMBER CLASS 03/09/2018/ [id number] Bucky Ibanez Inpatient [place] Angelique 8 2 Encounter [facility] ing:WPRoom: Repository SY042Hvd: 1 02/04/2018 [id number] Ambulatory [place] 4 [facility] ing:LABSPEC Repository 12/18/2017 [id number] Ambulatory [place] 6 [facility] ing:WOBLAB Repository 11/20/2017 [id number] Ambulatory [place] 1 [facility] ing:WOBLAB Repository 07/22/2017/ [id number] Emergency [place] 8 0 [facility] ing:ED Repository PAYERS PAYERS ENCOUNTER GUARANTOR PAYER SUBSCRIBER SOURCE 03/09/2018 ADA I [id number] Primary Insurance:[facility] ADA I TROYERDOB: [place] [id number]: [place], [place] [address]Osm: [id number] Repository Date:2018-03-09 () 03/09/2018 Secondary NOT GIVENUNK Angelique Insurance:SELF PAY [facility] Number: Effective Repository Date:2018-03-09 02/04/2018 ADA I [id number] Primary ADA I TROYERDOB: [place] HOY Insurance:[facility] [id number] [facility] [place], [place] [address]Uag: [id number] Repository Date:2018-02-04 () 02/04/2018 Secondary NOT GIVENUNK Angelique Insurance:SELF PAY [facility] Number: Effective Repository Date:2018-02-04 12/18/2017 ADA I [id number] Primary ADA I TROYERDOB: Angelique HOY Insurance:[facility] [id number] [facility] Number: [place], [place] [address]Pts: Effective Repository Date:2017-12-18 () 12/18/2017 Secondary NOT GIVENUNK Angelique Insurance:SELF PAY [facility] Number: Effective Repository Date:2017-12-18 11/20/2017 ADA I [id number] Primary NOT GIVENUNK Angelique HOY Insurance:SELF PAY [facility] [place] [id number]: Number: Effective Repository Date:2017-11-20 () 07/22/2017 ADA I [id number] Primary ADA I TROYERDOB: Angelique S APPLE ANVIK Insurance:[id number] Number: [facility] , [place] [address]Soi: Effective Repository Date:2017-07-22 () 07/22/2017 Secondary NOT GIVENUNK [place] Insurance:SELF PAY [facility] Number: Effective Repository Date:2017-07-22
== END 2018-03-11 11:25 | disposition home or self-care (01) | DRG 807 ==
LOC: WPOUT 13:46
PROVIDERS: Admitting Provider Obstetrics & Gynecology; Visit Provider Obstetrics & Gynecology
DX: O71.82 Other specified trauma to perineum and vulva (principal); Z37.0 Single live birth; Z3A.40 40 weeks gestation of pregnancy; Z87.891 Personal history of nicotine dependence
CPT/HCPCS: 59025; 59050; 85027; 86850; 86900; 99218; J7120; G0378

== ENCOUNTER → 2018-09-30 | Outpatient (CLI) | payer SELFPAY ==
[2018-09-30 13:26] LABS: Absolute Lymphocyte Count 1.97 X10^3/ul (0.83-4.51); Basophil# 0.03 X10^3/uL; Basophil% 0.4 % (0-1); Eosinophil# 0.12 X10^3/uL; Eosinophils% 1.8 % (0-5); Hematocrit 39.6 % (37-47); Hemoglobin 13.1 g/dl (12.0-15.0); Lymphocyte # 1.97 X10^3/ul (4.0); Lymphocyte % 29.4 % (19-41); Mean Corp Hgb Conc 33.1 g/gl (32-36); Mean Corpuscular Hgb 28.9 pg (27.0-32.0); Mean Corpuscular Volume 87.4 fL (81-99); Mean Platelet Vol. 9.4 fl (6.2-12.0); Monocyte# 0.55 X10^3/uL; Monocyte% 8.2 % (0-10); Neutrophil % 59.9 % (47-70); Platelet Count 315 K/mm3 (150-450); RBC Distribution Width CV 13.2 % (11.6-14.6); RBC Distribution Width SD 40.6 fl (35.1-43.9); Red Blood Count 4.53 M/mm3 (4.2-5.4); White Blood Count 6.7 K/mm3 (4.4-11.0)
[2018-09-30 13:27] LABS: POSITIVE COUNT NO; POSITIVE DIFFERENTIAL NO; POSITIVE MORPHOLOGY NO
[2018-09-30 14:00] LABS: Vitamin B12 1195 pg/mL (211-911); Vitamin D,25 Hydroxy 17.2 ng/mL (29.95-100.01)
[2018-09-30 14:09] LABS: Ferritin 21 ng/mL (8-252); Free T3 2.5 pg/mL (2.18-3.98); T4 Free Direct 0.77 ng/dL (0.76-1.46); Thyroid Stim Hormone (TSH) 2.27 uIU/mL (0.358-3.74)
[2018-09-30 14:10] LABS: Homocysteine 6.8 umol/L (3.2-10.7)
== END | disposition home or self-care (01) ==
PROVIDERS: Family Provider Nurse Practitioner Family; PCP Nurse Practitioner Family; Referring Provider Obstetrics & Gynecology; Visit Provider Obstetrics & Gynecology
DX: F32.9 Major depressive disorder, single episode, unspecified (principal); R53.83 Other fatigue
CPT/HCPCS: 36415; 82306; 82607; 82728; 82746; 83090; 83921; 84439; 84443; 84481; 85025

== ENCOUNTER → 2020-02-18 | Outpatient (CLI) | payer SELFPAY | END | disposition home or self-care (01) | LOC: LABSPEC 15:34 | PROVIDERS: PCP Nurse Practitioner Family; Visit Provider Obstetrics & Gynecology | DX: R30.0 Dysuria (principal) | CPT/HCPCS: 87086; 87088 ==

== ENCOUNTER 2024-07-22 13:34 | Emergency (ER) | payer OTHER, SELFPAY ==
[2024-07-22 13:35] VITALS: BP 104/58; PULSE 102; RESP 14; TEMP 36.8; O2SAT 98; BMI 35.2
[2024-07-22 15:35] VITALS: BP 102/53; PULSE 86; RESP 18; O2SAT 97
--- NOTE | 2024-07-22 16:01 | EDS_ITS ---
HPI History of Present Illness Chief Complaint: Headache Detail of Chief Complaint: Deep headache and pruritic rash Informant: patient and spouse/S.O. Onset/Context/Timing Onset: Days Context: Gradual Onset (With respect to the headache) and Sudden Onset (With respect to the rash and has been seen for it) Timing: Continuous (Regarding both) Quality: Deep unusual pain and pleuritic red rash Location: Head and generalized respectively Current Severity: Moderate Maximum Severity: Severe Worsened by: Nothing with respect to the headache itching with respect to the rash Relieved by: Nothing for either 1 Associated Symptoms Associated Symptoms: None Narrative Narrative: Patient is a 28-year-old female. She presents because of rash that is pruritic and raised. Generalized. It is erythematous. Consistent with hives. She was treated she states with 2 shots. She does not know what she received. She is presently on something stronger than Benadryl according to the . Her rash did not start 20 to 30 minutes after she may have had some fruit nuts berries etc. She states she was outside the day of the onset. She states she had swollen lips. She present on no swallowing. She has no change in voice. Has no difficulty swallowing. Patient denies double vision blurred vision loss of vision. She does have tinnitus. She denies decreased hearing. She denies neck pain or neck stiffness. She denies paresthesia, anesthesia Medicus upper or lower extremity. Denies problems with coordination or balance. She denies chest pain, shortness of breath or difficulty breathing. She denies abdominal pain, nausea, long or diarrhea. She denies orthostatic symptoms. Prior similar symptoms: No Recent Illness/Hospitalization: No [facility]SH [facility] Medical History Allergic angioedema Hives Hiatal hernia Cholecystectomy planned Loss of consciousness Home Medications ?Medication ?Instructions ?Recorded ?Last Taken ?Type bupropion HCl 150 mg tablet,12 hr 150 mg PO QAM Unknown History sustained-release (Wellbutrin SR) methylprednisolone 4 mg tablets in See Rx Instructions PO PER PKG DIR 07/21/24 Unknown History a dose pack (Medrol (Niels)) famotidine 20 mg tablet (Pepcid) 20 mg PO BID #7 tabs 07/22/24 Unknown Rx Allergy/AdvReac Type Severity Reaction Status Date / Time No Known Allergies Allergy Verified 07/22/24 13:35 Surgical History History of Sandip fundoplication History of cholecystectomy Social History Smoking Status: Never smoker alcohol intake: never ROS ROS ED Constitutional Constitutional ED: Denies chills, fever(s), subjective, sweats or weight loss Eyes Eyes: Denies blurry vision, change in vision or diplopia ENT ENT ED: Denies ear pain, rhinorrhea or sore throat Cardiovascular Cardiovascular: Denies chest pain, orthopnea, palpitations, paroxysmal nocturnal dyspnea or racing heartbeat Respiratory/Chest Respiratory/Chest: Denies cough, dyspnea, dyspnea on exertion, orthopnea, paroxysmal nocturnal dyspnea or sputum Gastrointestinal Gastrointestinal: Denies abdominal pain, constipation, diarrhea, melena, nausea or vomiting Genitourinary Genitourinary ED: Denies dysuria, hematuria or urinary frequency Musculoskeletal Musculoskeletal: Denies arthralgias or myalgias Integumentary Denies rash Neurologic Neurologic: Denies headache(s) Psychiatric Psychiatric: Denies anxiety or depression Endocrine Endocrinology: Denies cold intolerance or heat intolerance Hematologic/Lymphatic Hematologic/Lymphatic: Reports systems reviewed and no addt'l complaints, except as documented EXAM Physical Exam Const Vital Signs: 07/22/24 13:35 07/22/24 15:35 07/22/24 17:00 Temperature 98.3 F Temperature Source Temporal Pulse Rate 102 H 86 72 Respiratory Rate 14 18 14 Blood Pressure 104/58 L 102/53 L 115/71 Blood Pressure Mean 73 69 85 Pulse Ox 98 97 99 Oxygen Delivery Method Room Air Room Air Room Air Positive well nourished and well developed Constitutional Narrative: BMI is 35.3. General Appearance ED: well developed and NAD; Negative for cyanotic or diaphoretic HEENT Reports moist mucous membranes HEENT Narrative: Head is atraumatic normocephalic. Ears normal. External auditory canal normal. TMs are normal. Nares patent. There is no drainage. Posterior pharynx without erythema or exudate. Uvula midline. No deviation tongue protrusion. Patient complains of pain with palpation over the frontal, ethmoid and maxillary sinuses bilaterally. Neck is supple. Eyes PERRL and EOMs intact bilaterally Eyes Narrative: There is no photophobia. Difficult to see fundi. The cup-to-disc ratio was normal. There was no obvious papilledema. Patient's eyes were not dilated General Eye ED: Negative for pale conjunctiva or scleral icterus Neck no lymphadenopathy, supple and no JVD Resp normal respiratory effort and clear to auscultation bilaterally Cardio regular rate, regular rhythm, S1 normal heart sound, S2 normal heart sound and no murmurs GI normal to inspection, nondistended, normoactive bowel sounds, non-tender, non- distended and no masses; Negative for hepatosplenomegaly Extremity normal to inspection Extremity Narrative: Patient has urticaria upper and lower extremity as well as torso Neuro oriented x3 and CN's II-XII intact bilaterally Neuro Narrative: Patient is awake. Psych Mood & Affect: depressed Skin Skin Narrative: Urticaria. MDM MDM MDM Narrative Medical decision making narrative: With patient having no history of headaches and states this is very unusual for her and she took adav-kaw-syodvvp meds with no improvement we will obtain CT of the head. This was obtained to assess for sinusitis, intracranial bleed. The latter is unlikely. She has no meningeal findings at. The rash she has is urticaria. No obvious inciting antigen. Patient was seen at urgent care and treated for allergic angioedema yesterday. She also was seen at urgent care November 2023 for gastritis. History & Record Review Additional record(s) reviewed:: Prior inpatient record (OB record by Dr. Bucky Ibanez in 2018 for) Lab Data Lab results narrative: CBC is unremarkable. Electrolyte panel is unremarkable. Glucose is slightly evaded 135 with normal CO2 anion gap. Labs: Laboratory Results - last 24 hr 07/22/24 16:10 WBC 7.6 RBC 5.02 Hgb 12.9 Hct 41.0 MCV 81.7 MCH 25.7 L MCHC 31.5 L RDW Std Deviation 49.2 H RDW Coeff of Gary 16.6 H Plt Count 362 MPV 9.2 Immature Gran % (Auto) 0.400 Neut % (Auto) 82.7 H Lymph % (Auto) 12.9 L [place] % (Auto) 3.4 Eos % (Auto) 0.5 Baso % (Auto) 0.1 Absolute Neuts (auto) 6.3 Absolute Lymphs (auto) 0.98 Nucleated RBC % 0 Sodium 137 Potassium 3.6 Chloride 101 Carbon Dioxide 24.9 Anion Gap 12 BUN 14 Creatinine 0.75 Estim Creat Clear Calc 116.75 Est GFR (MDRD) Non-Af 113 BUN/Creatinine Ratio 19.1 Glucose 135 H Calcium 8.8 Radiography Diagnostic Testing: Clinical Impression(s) from Imaging Studies Brain CT 07/22/24 16:56 IMPRESSION: No acute intracranial abnormality. Reading Location: [facility] C-minus had reviewed by me at 1747 reveals no intracranial pathology. There is no MRI of the sinuses. There is no evidence of fracture. Awaiting formal read by radiologist. Treatment and Re-Evaluation :: Patient was reassessed at 1853. She has had improvement of her headache. She was informed of her laboratory results and CAT scan results. Plan is to discharge to home she was instructed to follow-up with Dr. Palafox for allergy testing. Discharge Plan Triage Chief Complaint: Headache ED Provider: Alvaro Hernandez Dx/Rx/DC Orders Clinical Impression: Hives, Headache, Adult BMI 35.0-35.9 kg/sq m Instructions: ED Hives (Adult) Prescriptions: New famotidine [Pepcid] 20 mg tablet 20 mg PO BID Qty: 7 0RF No Action bupropion HCl [Wellbutrin SR] 150 mg tablet sustained-release 12 hr 150 mg PO QAM methylprednisolone [Medrol (Niels)] 4 mg tablets,dose pack See Rx Instructions PO PER PKG DIR Rx Instructions: PO PER PKG DIR Primary Care Provider: Petr Palafox Referrals: Latricia Sullivan HOSPITAL INTERN, HOSPITAL INTERN-C [Non-Staff] - 3-5 Days Activity Restrictions/Additional Instructions: You need to follow-up with your doctor to have allergy testing. Print Language: Bulgarian Disposition Disposition: Home, Self Care
[2024-07-22] MEDS: Famotidine 200 MG/20 ML MDV 20 MG in 0.9% Normal Saline (Pres. free 8 ML 300 MG IV (16:09)
[2024-07-22 16:22] LABS: Absolute Lymphocyte Count 0.98 X10^3/uL (0.83-4.51); Absolute Neutrophil Count 6.3 X10^3/uL (2.0-7.7); Basophil# 0.01 X10^3/uL; Basophil% 0.1 % (0-1); Eosinophil# 0.04 X10^3/uL; Eosinophils% 0.5 % (0-5); Hemoglobin 12.9 g/dL (12.0-15.0); Lymphocyte # 0.98 X10^3/ul (0.83-4.51); Lymphocyte % 12.9 % (19-41); Mean Corp Hgb Conc 31.5 g/dL (32-36); Mean Corpuscular Hgb 25.7 pg (27.0-32.0); Mean Corpuscular Volume 81.7 fL (81-99); Mean Platelet Vol. 9.2 fl (6.2-12.0); Monocyte# 0.26 X10^3/uL; Monocyte% 3.4 % (0-10); NRBC Flagged by Analyzer 0 % (0-5); Neutrophil # 6.28 X10^3/uL (2.7-7.7); Neutrophil % 82.7 % (47-70); Platelet Count 362 K/mm3 (150-450); RBC Distribution Width CV 16.6 % (11.6-14.6); RBC Distribution Width SD 49.2 fl (35.1-43.9); Red Blood Count 5.02 M/mm3 (4.2-5.4); White Blood Count 7.6 K/mm3 (4.4-11.0)
--- NOTE | 2024-07-22 16:56 | CT_ITS ---
PROCEDURE: BRAIN/HEAD WITHOUT CONTRAST 07/22/2024 REASON FOR EXAM: SEVERE DEEP HEADACHE, HISTORY OF NO HEADACHES TECHNIQUE: Head CT without intravenous contrast. Coronal and Sagittal reconstruction series were provided. One or more dose reduction techniques were used (e.g., Automated exposure control, adjustment of the mA and/or kV according to patient size, use of iterative reconstruction technique. COMPARISON: None FINDINGS: * ACUTE: No acute infarct or hemorrhage. No mass effect or herniation. * BRAIN PARENCHYMA: Signal intensities are within normal limits for age. * VENTRICLES/EXTRA-AXIAL SPACES: No hydrocephalus or extra-axial fluid collections. * EXTRACRANIAL STRUCTURES: Visualized osseous structures are normal. Soft tissues are normal. CT/Brain/Head without Contrast IMPRESSION: No acute intracranial abnormality. Reading Location: [facility]
[2024-07-22 17:00] VITALS: BP 115/71; PULSE 72; RESP 14; O2SAT 99
[2024-07-22 17:03] LABS: Anion Gap 12 (5-15); BUN 14 mg/dL (4-19); BUN/Creat Ratio 19.1 RATIO (10-20); Calcium,Total 8.8 mg/dL (7.6-11.0); Carbon Dioxide 24.9 mmol/L (21.0-32.0); Chloride 101 mmol/L (98-108); Creatinine, Serum 0.75 mg/dL (0.70-1.20); EST Glomerular Filtration Rate 113 (>60); Estimated Creatinine Clearance 116.75 ml/min (50-250); Glucose 135 mg/dL (70-99); Potassium 3.6 mmol/L (3.3-5.1); Sodium Level 137 mmol/L (133-145)
[2024-07-22] MEDS: Ketorolac 15 MG/ML Vial IV (17:56)
[2024-07-22] MEDS: Metoclopramide 10 MG/2 ML Vial IV (17:58)
[2024-07-22] MEDS: DiphenhydrAMINE 50 MG/ML Syringe 25 MG IV (17:59)
[2024-07-22 19:00] VITALS: BP 117/78; PULSE 74; RESP 16; TEMP 36.6; O2SAT 99
== END 2024-07-22 19:11 | disposition home or self-care (01) ==
PROVIDERS: Emergency Provider Emergency Medicine; PCP Family Medicine; Visit Provider Emergency Medicine
DX: R51.9 Headache, unspecified (principal); L50.9 Urticaria, unspecified; Z90.49 Acquired absence of other specified parts of digestive tract
CPT/HCPCS: 70450; 80048; 85025; 96374; 96375; 99284; A4216

== ENCOUNTER → 2024-10-17 | Outpatient (CLI) | payer OTHER, SELFPAY | END | disposition home or self-care (01) | PROVIDERS: PCP Family Medicine; Referring Provider Physician Assistant Surgical; Visit Provider Physician Assistant Surgical | DX: S70.362A Insect bite (nonvenomous), left thigh, initial encounter (principal); R53.83 Other fatigue; W57.XXXA Bitten or stung by nonvenomous insect and other nonvenomous arthropods, initial encounter | CPT/HCPCS: 36415; 86617 ==